=== PATIENT | male | born 1970 | race Caucasian/White ===

== ENCOUNTER 2019-02-10 05:35 | Day surgery (SDC) | payer BC ==
[2019-02-10] MEDS: LACTATED RINGER'S 1,000 ML IV (06:49)
[2019-02-10] MEDS ORDERED: ROPIVACAINE 0.5 % 30 ML VIAL ×2 (06:53→07:34)
[2019-02-10] MEDS ORDERED: POLYMYXIN/BACITRACIN 1L IRRIG (06:54)
[2019-02-10] MEDS ORDERED: OXYCODONE/ACETAMINOPHEN (5/325) TAB PO (07:30)
[2019-02-10] MEDS ORDERED: DESFLURANE 15 MIN (07:30)
[2019-02-10] MEDS ORDERED: FENTAnyl 50 MCG/ML VIAL IV ×3 (07:30)
[2019-02-10] MEDS ORDERED: GLYCOPYRROLATE 0.4 MG INJ (07:30)
[2019-02-10] MEDS ORDERED: HYDROmorphONE 1 MG/5 ML IV SYRINGE IV (07:30)
[2019-02-10] MEDS ORDERED: NEOSTIGMINE 3 MG/3 ML SYRINGE (07:30)
[2019-02-10] MEDS ORDERED: CEFAZOLIN 1 GM INJ ×2 (07:30→11:15)
[2019-02-10] MEDS ORDERED: ALBUTEROL 0.083% (NEB) 2.5 MG/3 ML AMP HHN (07:30)
[2019-02-10] MEDS ORDERED: DIPHENHYDRAMINE 50 MG INJ IV (07:30)
[2019-02-10] MEDS ORDERED: METOCLOPRAMIDE 10 MG INJ IV (07:30)
[2019-02-10] MEDS ORDERED: MIDAZOLAM 1 MG/ML 2 ML INJ (07:34)
[2019-02-10] MEDS ORDERED: FENTAnyl 50 MCG/ML VIAL ×3 (07:34→11:28)
[2019-02-10] MEDS: POLYMYXIN/BACITRACIN 1L IRRIG IRR (09:34)
[2019-02-10] MEDS ORDERED: ROCURONIUM 50 MG INJ (11:15)
[2019-02-10] MEDS ORDERED: SUCCINYLCHOLINE CHLORIDE 100 MG/5 ML SYG IV (11:15)
[2019-02-10] MEDS ORDERED: LIDOCAINE 100 MG SYRINGE (11:15)
[2019-02-10] MEDS ORDERED: PROPOFOL 20 ML (11:15)
[2019-02-10] MEDS: MEPERIDINE 25 MG INJ IV (12:50)
[2019-02-10] MEDS: ONDANSETRON 4 MG INJ IV (12:51)
[2019-02-10] MEDS: HYDROmorphONE 1 MG/5 ML IV SYRINGE IV ×2 (12:51→13:27)
[2019-02-10] MEDS ORDERED: HYDROmorphONE 2 MG/ML SYG IV (13:00)
[2019-02-10] MEDS ORDERED: oxyCODONE 5 MG TAB (13:09)
[2019-02-10] MEDS: oxyCODONE 5 MG TAB PO (13:19)
[2019-02-10] MEDS: NEOMYC/POLYMYX/BACIT 30 GM OINT (14:47)
== END 2019-02-10 16:15 | disposition home or self-care (01) ==
LOC: SDS 05:35
DX: M19.171 Post-traumatic osteoarthritis, right ankle and foot (principal); M24.071 Loose body in right ankle; M25.771 Osteophyte, right ankle; I10 Essential (primary) hypertension; E11.9 Type 2 diabetes mellitus without complications; E78.5 Hyperlipidemia, unspecified
CPT/HCPCS: 29898; 73610-RT; 82306